=== PATIENT | male | born 1975 | race Two or more races ===

== ENCOUNTER 2018-12-02 19:09 | Emergency (ER) | payer BC, OTHER ==
[~2018-12-02] VITALS: Ht 170.2 cm; Wt 159.7 kg
[~2018-12-02 19:09] MED LIST: ASPI81EC98 PO; CINA60TA1 PO; CLIN-178 PO; CLON0.2T43 PO; LAC PO; MULT-1469 PO; NIFE90TE4 PO; SEVE800T6 PO; [UNRECOGNIZED DRUG - CODE] PO
[2018-12-02 19:15] VITALS: BP 149/80
--- NOTE | 2018-12-02 19:25 | NUR ---
43 Y/O PRESENTED TO ED WITH PUNCTURE WOUND TO R A/V FISTULA, OCCURRED APPROXIMATELY 1 HOUR PRIOR TO ARRIVAL TO HOSPITAL. PER PT "WAS AT DIALYSIS WHEN THEY WERE ABOUT TO START, THEY PUNCTURED IT AND STARTED BLEEDING." AT DIALYSIS TOOK 40 MINS TO CONTROL BLEEDING. PER PT THIS HAS OCCURED BEFORE. BILATERAL RADIAL PUSLES PRESENT. BRUIT/THRILL PRESENT TO R A/V SITE. SKIN PINK AND WARM. ERMD NOTIFIED. WILL CONTINUE TO MONITOR.
--- NOTE | 2018-12-02 20:50 | NUR ---
PT AWAKE. FAMILY AT BEDSIDE. VSS AT THIS TIME. WILL CONTINUE TO MONITOR.
--- NOTE | 2018-12-02 21:12 | NUR ---
DR. ANGUIANO BEDSIDE EVALUATING PT
--- NOTE | 2018-12-02 21:45 | NUR ---
PT TO BE NPO UNTIL FURTHER NOTICE.
[2018-12-02 22:19] LABS: BASOPHILS % (AUTO) 0.4 % (0.0-2.0); EOSINOPHILS # (AUTO) 0.3 K/uL (0-0.4); EOSINOPHILS % (AUTO) 3.2 % (0.0-4.0); HEMATOCRIT 35.5 % (36-52); HEMOGLOBIN 11.9 g/dL (12.0-18.0); LYMPHOCYTES # (AUTO) 2.6 K/uL (2.0-11.5); LYMPHOCYTES % (AUTO) 28.1 % (20.5-51.1); MEAN CORPUSCULAR HEMOGLOBIN 37 pg (27-31); MEAN CORPUSCULAR HGB CONC 34 g/dL (33-37); MEAN CORPUSCULAR VOLUME 110.7 fL (80-94); MONOCYTES # (AUTO) 0.6 K/uL (0.8-1.0); MONOCYTES % (AUTO) 6.6 % (1.7-9.3); NEUTROPHILS # (AUTO) 5.7 K/uL (1.8-7.7); NEUTROPHILS % (AUTO) 61.7 % (42.2-75.2); PLATELET COUNT (AUTO) 248 K/uL (140-450); RED BLOOD CELL COUNT(AUTO) 3.21 MIL/uL (4.20-6.10); RED CELL DISTRIBUTION WIDTH 14.6 % (11.6-13.7); WHITE BLOOD COUNT (AUTO) 9.2 K/uL (4.8-10.8)
[2018-12-02 22:45] LABS: PROTHROMBIN TIME 9.3 secs (10.8-13.4)
[2018-12-02 22:49] LABS: ALBUMIN 3.5 g/dL (3.4-5.0); TOTAL BILIRUBIN 0.3 mg/dL (0.0-1.0)
[2018-12-02 22:54] LABS: CREATININE 13.6 mg/dL (0.7-1.3)
--- NOTE | 2018-12-02 22:55 | NUR ---
DR. ANGUIANO GAVE OK FOR PT TO EAT.
[2018-12-02 23:40] LABS: POTASSIUM 5.5 mmol/L (3.5-5.1)
[2018-12-02 23:41] LABS: ANION GAP 13.4 (8-16); CARBON DIOXIDE 32.1 mmol/L (21-32)
--- NOTE | 2018-12-03 00:10 | NUR ---
Pt stated 9/[address] Talamantes made aware.
[2018-12-03] MEDS ORDERED: MORPHINE SULFATE 4 MG/ML SYR IVP ONE (00:20)
--- NOTE | 2018-12-03 01:17 | NUR ---
[facility] at bedside for transport to [facility].
[2018-12-03 01:20] VITALS: BP 149/79
--- NOTE | 2018-12-03 01:30 | NUR ---
Report called to [facility] to ANA LILIA Downs.
--- NOTE | 2018-12-03 01:35 | NUR ---
Patient to be transferred to [facility]. Is being transferred due to higher level of care. ER physician has signed transfer form. Patient or responsible constitution party has agreed to transfer and signed form. Patient belongings inventoried and will be sent with patient. Copy of nursing notes, lab reports, EKG, Physicians Orders and X-rays to be sent with patient. Report called to ANA LILIA Downs at receiving facility. VSS at time of transfer.
== END 2018-12-03 01:36 | disposition short-term general hospital (02) ==
LOC: MED 19:09
DX: T82.838A Hemorrhage due to vascular prosthetic devices, implants and grafts, initial encounter (principal); R79.1 Abnormal coagulation profile; J45.909 Unspecified asthma, uncomplicated; I10 Essential (primary) hypertension; N28.9 Disorder of kidney and ureter, unspecified; Z86.73 Personal history of transient ischemic attack (TIA), and cerebral infarction without residual deficits; Z79.82 Long term (current) use of aspirin; Z79.899 Other long term (current) drug therapy; Z79.2 Long term (current) use of antibiotics
CPT/HCPCS: 36415; 80053; 85025; 85610; 85730; 96374; 99283; J2270; 99285